=== PATIENT | female | born 1960 | race Two or more races ===

== ENCOUNTER 2019-10-08 15:51 | Emergency (ER) | payer MEDICARE, MEDICAID ==
[~2019-10-08] VITALS: Ht 162.6 cm; Wt 86.4 kg
[~2019-10-08 15:51] MED LIST: HYDR-3965 PO; IBUP-1051 PO; METO-395 PO; NOR5T PO; PENI500T2 PO
[2019-10-08] MEDS ORDERED: SUMAtriptan succ. 6 MG/0.5ml vial SQ STA (17:21)
[2019-10-08] MEDS ORDERED: normal saline 1000ML IV soln IVB ONE (17:25)
[2019-10-08] MEDS ORDERED: cyclobenzaprine 10mg tablet PO ONE (17:25)
[2019-10-08] MEDS ORDERED: ketorolac trometh. 30mg/ml inj. IV ONE (17:25)
[2019-10-08] MEDS ORDERED: ondansetron/PF 4mg/2ml inj IV ONE (17:55)
[2019-10-08 18:25] VITALS: BP 185/78
== END 2019-10-08 18:27 | disposition home or self-care (01) ==
LOC: ER 15:52
DX: G43.909 Migraine, unspecified, not intractable, without status migrainosus (principal); G89.29 Other chronic pain; M54.2 Cervicalgia; I10 Essential (primary) hypertension; M19.90 Unspecified osteoarthritis, unspecified site; Z90.49 Acquired absence of other specified parts of digestive tract; Z98.890 Other specified postprocedural states; Z88.5 Allergy status to narcotic agent; Z88.1 Allergy status to other antibiotic agents; Z79.899 Other long term (current) drug therapy
CPT/HCPCS: 96372; 96374; 96375; 99284; J1885; J2405; J7030; J3030

== ENCOUNTER 2023-12-22 21:39 | Emergency (ER) | payer MEDICARE, MEDICAID ==
[~2023-12-22] VITALS: Ht 162.6 cm; Wt 71.8 kg
[2023-12-22 21:41] VITALS: BP 149/83; PULSE 82; RESP 16; TEMP 98; O2SAT 99
[2023-12-22] MEDS: cyclobenzaprine 10mg tablet PO ONE (22:44)
== END 2023-12-22 22:55 | disposition home or self-care (01) ==
LOC: ER 21:39
DX: S29.011A Strain of muscle and tendon of front wall of thorax, initial encounter (principal); I10 Essential (primary) hypertension; M19.90 Unspecified osteoarthritis, unspecified site; Z88.5 Allergy status to narcotic agent; Z91.041 Radiographic dye allergy status; Z79.1 Long term (current) use of non-steroidal anti-inflammatories (NSAID); Z79.899 Other long term (current) drug therapy; Z90.49 Acquired absence of other specified parts of digestive tract; Z98.890 Other specified postprocedural states; W22.8XXA Striking against or struck by other objects, initial encounter; Y93.89 Activity, other specified; Y92.89 Other specified places as the place of occurrence of the external cause; Y99.8 Other external cause status
CPT/HCPCS: 71101; 99283